=== PATIENT | female | born 1975 | race Caucasian/White ===

== ENCOUNTER 2016-08-31 10:40 | Emergency (ER) | payer SELFPAY ==
[2016-08-31 10:48] VITALS: TEMP 97.8; BMI 25.6
--- NOTE | 2016-08-31 11:30 | PDOC ---
History of Present Illness - History of Present Illness Initial Comments: 08/31/16 11:31 The patient is a 40-year-old woman, [id number] (2 were surgical ; last was oral pill intake in 2013), with no past medical history of who presents to the emergency department via walk-in for further evaluation of vaginal bleeding for the past 3 weeks. Patient states that she has been experiencing intermittent episodes of vaginal bleeding, daily, that are at times heavy (soaking 2 pads) and also at times light. She reports experiencing abdominal pain, approximately 3 days ago. She describes her pain as a cramping sensation that is focal and non -radiating over the right lower quadrant. She went to [facility], approximately 2 days ago for which she underwent an ultrasound and she was found to have a right sided pelvic mass. Patient states that her abdominal pain has worsen, to a rated 8/10 in severity with associated symptoms of chills. She also expresses concern, as she is still bleeding. Her last menstrual period was June 29 2016. She denies history of ovarian cysts/ ectopic pregnancies. She admits to a history of Gonorrhea which was treated orally when she was approximately 22 years of age. Allergies: No Known Drug Allergies. Past Surgical History: See HPI. Social History: No tobacco, ETOH and recreational drug use. <Violet Sebastian - Last Filed: 08/31/16 14:30> <Mayank Landers - Last Filed: 08/31/16 16:32> - General Chief Complaint: Vaginal Bleeding Stated Complaint: VAG BLEEDIING Time Seen by Provider: 08/31/16 11:11 Past History <Violet Sebastian - Last Filed: 08/31/16 14:30> - Past Medical History Other medical history: DENIES. - Psycho/Social/Smoking Cessation Hx Suicidal Ideation: No Smoking History: Never smoked <Mayank Landers - Last Filed: 08/31/16 16:32> - Past Medical History Allergies/Adverse Reactions: Allergies Allergy/AdvReac Type Severity Reaction Status Date / Time No Known Allergies Allergy Verified 08/31/16 10:44 Home Medications: Ambulatory Orders NK [No Known Home Medication] 08/31/16 Review of Systems - Review of Systems Constitutional: No: Chills, Fever Respiratory: No: Cough, Shortness of Breath Cardiac (ROS): No: Chest Pain : Yes: See HPI. No: Dysuria All Other Systems: Reviewed and Negative <Mayank Landers - Last Filed: 08/31/16 16:32> *Physical Exam - Vital Signs Last Vital Signs Temp Pulse Resp BP Pulse Ox 97.8 F 76 19 114/62 99 08/31/16 10:45 08/31/16 10:45 08/31/16 10:45 08/31/16 10:45 08/31/16 10:45 - Physical Exam Comments: 08/31/16 11:36 GENERAL: The patient is awake, alert, and fully oriented, in no acute distress. HEAD: Normal with no signs of trauma. EYES: Pupils equal, round and reactive to light, extraocular movements intact, sclera anicteric, conjunctiva clear with no pallor. ENT: Ears normal, nares patent, oropharynx clear without exudates. Moist mucous membranes. NECK: Normal range of motion, supple without lymphadenopathy, JVD, or masses. LUNGS: Breath sounds equal, clear to auscultation bilaterally. No wheeze/ crackles. HEART: Regular rate and rhythm, normal S1 and S2 without murmur or rub. ABDOMEN: Soft. +Referred pain to the right lower quadrant when palpating the left. There is some diffuse tenderness with guarding greater in the pelvis that the right lower quarant below McBurney's point. Nondistended. BS wnl. No palpable masses. No hepatosplenomegaly. EXTREMITIES: Normal range of motion, no edema. No clubbing or cyanosis. No cords, erythema, or tenderness. NEUROLOGICAL: Cranial nerves II through XII grossly intact. Normal speech, normal gait. PSYCH: Normal mood, normal affect. SKIN: Warm, Dry, normal turgor, no rashes or lesions noted. <Violet Sebastian - Last Filed: 08/31/16 14:30> - Vital Signs Last Vital Signs Temp Pulse Resp BP Pulse Ox 97.8 F 76 19 114/62 99 08/31/16 10:45 08/31/16 10:45 08/31/16 10:45 08/31/16 10:45 08/31/16 10:45 <Mayank Landers - Last Filed: 08/31/16 16:32> ED Treatment Course - LABORATORY CBC & Chemistry Diagram: 08/31/16 11:50 08/31/16 11:33 - RADIOLOGY Radiograph Interpretation: 08/31/16 14:30 EXAM: US/TRANSVAGINAL ULTRASOUND IMPRESSION: The uterus is normal in size measuring 8.1 x 6.1 x 5.6 cm. There is a uterine mass identified within the fundus consistent with a leiomyoma. This fibroid measures 2.6 x 2.4 x 2.2 cm. A normal appearing endometrium of 3 mm thickness was identified. The right ovary is normal in size and texture. The left ovary could not be identified. The are distended vascular structures within both adnexal regions suspicious for varicoceles. There is no evidence of adnexal masses. There is a small amount of free fluid within the cul-de- sac. <Violet Sebastian - Last Filed: 08/31/16 14:30> - LABORATORY CBC & Chemistry Diagram: 08/31/16 11:50 08/31/16 11:33 - RADIOLOGY Radiology Studies Ordered: Category Date Time Status TRANSVAGINAL ULTRASOUND US [US] Stat Ultrasound 08/31/16 11:29 Ordered <Mayank Landers - Last Filed: 08/31/16 16:32> Medical Decision Making - Medical Decision Making 08/31/16 12:14 A portion of this note was documented by scribe services under my direction. I have reviewed the details of the note, within reason, and agree with the documentation with the following case summary and management plan written by me. 40-year-old female , LMP first week of June presents with persistent vaginal bleeding for 3 weeks. Passing large clots and tissue last week, was evaluated at [facility] 2 days ago and had ultrasound that reportedly showed a pelvic mass, but she has no other knowledge of her results. Presents now for persistent pain in the right pelvis and spotting. To her knowledge, has never had an ectopic , had STI at age 22 that was treated, has had 2 procedural abortions. Vital signs normal. Generally well-appearing. Abdomen is soft and nondistended, but there are peritoneal findings in the right pelvis with referred pain to the right 40-year-old female with possible recent miscarriage presents with persistent spotting and right pelvic pain. Still concerning for ectopic, ? persistent cyst , ? infectious/abscess? Seems less likely GI related. labs, ua pain meds, IVF EVUS reassess 08/31/16 14:33 Labs are within normal limits, no leukocytosis, urinalysis is clear. HCG 1383. Ultrasound shows small fibroid, pelvic varicoceles, but no ovarian mass, IUP, or ectopic . HCG is likely downtrending given history of miscarriage. Given the persistent peritoneal findings, will check CT of the abdomen and pelvis to rule out any intra-abdominal pathology <Mayank Landers - Last Filed: 08/31/16 16:32> *DC/Admit/Observation/Transfer - Attestations Scribe Attestion: 08/31/16 11:39 Documentation prepared by Violet Sebastian, acting as medical services assistant for Mayank Landers MD. <Violet Sebastian - Last Filed: 08/31/16 14:30> <Mayank Landers - Last Filed: 08/31/16 16:32> Diagnosis at time of Disposition: Pelvic pain in female - Discharge Dispostion Condition at time of disposition: Fair
[2016-08-31] MEDS ORDERED: SODIUM CHLORIDE 1,000 ML IV ONE (11:42)
[2016-08-31] MEDS ORDERED: morphine CARPU-JECT 4 MG/1 ML DISP.SYRIN IVPUSH ONE (11:42)
[2016-08-31] MEDS ORDERED: ACETAMINOPHEN 500 MG TABLET (FP) PO ONE (11:52)
[2016-08-31] MEDS ORDERED: ACETAMINOPHEN 325 MG TABLET (FP) ONE (11:53)
[2016-08-31 11:58] LABS: BASOPHIL 0.5 % (0-2.0); EOSINOPHIL 1.2 % (0-4.5); MCH 30.7 pg (25.7-33.7); MCHC 34.3 g/dl (32.0-36.0); MEAN CELL VOLUME 89.6 fl (80-96); MEAN PLT VOLUME 7.6 fl (7.5-11.1); PLATELET COUNT 195 K/MM3 (134-434); RDW 13.9 % (11.6-15.6); WHITE BLOOD COUNT 7.3 K/mm3 (4.0-10.0)
[2016-08-31 11:59] LABS: URINE APPEARANCE CLEAR; URINE BILIRUBIN NEGATIVE (NEGATIVE); URINE COLOR STRAW; URINE GLUCOSE (UA) NEGATIVE (NEGATIVE); URINE KETONE NEGATIVE (NEGATIVE); URINE LEUK ESTERASE NEGATIVE (NEGATIVE); URINE NITRITE NEGATIVE (NEGATIVE); URINE PROTEIN NEGATIVE (NEGATIVE); URINE UROBILINOGEN NEGATIVE E.U./dl (0.2-1.0)
[2016-08-31 12:05] LABS: URINE BLOOD 2+ (NEGATIVE)
[2016-08-31 12:15] LABS: URINE MUCUS RARE; URINE RBC 1 /hpf (0-3); URINE WBC <1 /hpf (3-5)
[2016-08-31 12:16] LABS: INR 1.1 (0.82-1.09); PROTHROMBIN TIME (PATIENT) 12.1 SEC (9.98-11.88)
[2016-08-31 12:27] LABS: ANION GAP 10 (8-16); BILIRUBIN,TOTAL 0.7 mg/dL (0.2-1.0); CALCIUM 8.9 mg/dL (8.5-10.1); CO2 24 mmol/L (21-32); CREATININE 0.5 mg/dL (0.55-1.02); GLUCOSE,RANDOM 93 mg/dL (74-106); SGOT/AST 16 U/L (15-37); SGPT/ALT 26 U/L (12-78); TOT PROT 7.4 g/dl (6.4-8.2)
[2016-08-31 12:42] LABS: ALK PHOS 97 U/L (45-117)
[2016-08-31 15:21] VITALS: BP 121/69; PULSE 80
[2016-08-31] MEDS ORDERED: ACETAMINOPHEN WITH CODEINE 300MG/30MG TABLET PO ONE (15:46)
[2016-08-31] MEDS ORDERED: ACETAMINOPHEN WITH CODEINE 300MG/30MG TABLET ONE (15:55)
--- NOTE | 2016-08-31 18:53 | PDOC ---
*Physical Exam - Vital Signs Last Vital Signs Temp Pulse Resp BP Pulse Ox 97.8 F 80 19 121/69 99 08/31/16 10:45 08/31/16 14:40 08/31/16 14:40 08/31/16 14:40 08/31/16 14:40 ED Treatment Course - LABORATORY CBC & Chemistry Diagram: 08/31/16 11:50 08/31/16 11:33 - ADDITIONAL ORDERS Additional order review: Laboratory Results 08/31/16 08/31/16 08/31/16 11:50 11:50 11:33 INR 1.10 Sodium 139 Potassium 4.1 Chloride 105 Carbon Dioxide 24 Anion Gap 10 BUN 9 Creatinine 0.5 L Creat Clearance w eGFR > 60 Random Glucose 93 Calcium 8.9 Total Bilirubin 0.7 AST 16 ALT 26 Alkaline Phosphatase 97 Total Protein 7.4 Albumin 4.0 Beta HCG, Quant 1383.0 Urine Color Urine Appearance Urine pH Ur Specific [place] Urine Protein Urine Glucose (UA) Urine Ketones Urine Blood Urine Nitrite Urine Bilirubin Urine Urobilinogen Ur Leukocyte Esterase Urine RBC Urine WBC Ur Epithelial Cells Urine Mucus Urine HCG, Qual Blood Type O POSITIVE Antibody Screen Negative 08/31/16 11:20 INR Sodium Potassium Chloride Carbon Dioxide Anion Gap BUN Creatinine Creat Clearance w eGFR Random Glucose Calcium Total Bilirubin AST ALT Alkaline Phosphatase Total Protein Albumin Beta HCG, Quant Urine Color Straw Urine Appearance Clear Urine pH 6.0 Ur Specific [place] 1.010 Urine Protein Negative Urine Glucose (UA) Negative Urine Ketones Negative Urine Blood 2+ H Urine Nitrite Negative Urine Bilirubin Negative Urine Urobilinogen Negative Ur Leukocyte Esterase Negative Urine RBC 1 Urine WBC <1 Ur Epithelial Cells Rare Urine Mucus Rare Urine HCG, Qual Positive Blood Type Antibody Screen 08/31/16 11:50 RBC 4.37 MCV 89.6 MCHC 34.3 RDW 13.9 MPV 7.6 Neutrophils % 66.0 Lymphocytes % 27.0 Monocytes % 5.3 Eosinophils % 1.2 Basophils % 0.5 - Medications Given in the ED: ED Medications Discontinued Medications Generic Name Dose Route Start Last Admin Trade Name Freq PRN Reason Stop Dose Admin Acetaminophen 975 mg 08/31/16 11:52 08/31/16 11:53 Tylenol - PO 08/31/16 11:53 975 mg ONCE ONE Administration Acetaminophen/Codeine Phosphate 1 tab 08/31/16 15:46 08/31/16 15:56 Tylenol # 3 - PO 08/31/16 15:47 1 tab ONCE ONE Administration Sodium Chloride 1,000 mls @ 1,000 mls/hr 08/31/16 11:42 08/31/16 11:46 Normal Saline - IV 08/31/16 12:41 1,000 mls/hr ONCE ONE Administration Morphine Sulfate 4 mg 08/31/16 11:42 08/31/16 11:45 Morphine Injection - IVPUSH 08/31/16 11:43 Not Given ONCE ONE Medical Decision Making - Medical Decision Making 08/31/16 18:51 Sign-out received from outgoing Emergency Physician Dr. Landers Pt interviewed and examined Ancillary studies reviewed Case discussed in detail with oncoming Emergency Physician including history, physical exam and ancillary studies. CT abdomen and pelvis reviewed. Appendix appears unremarkable. 3 x 2 cm right ovarian cyst is seen containing internal debris, No free intraperitoneal fluid is noted. The common bile duct is slighty prominent with a 7 mm diameter. Transvaginal ultrasound. No evidence of adnexal masses. Fibroid uterus. Suspected bilateral pelvic varicocels. Trace free pelvic fluid. CBC, BMP 08/31/16 11:50 08/31/16 11:33 CMP Sodium 139 mmol/L (136-145) 08/31/16 11:33 Potassium 4.1 mmol/L (3.5-5.1) 08/31/16 11:33 Chloride 105 mmol/L (98-107) 08/31/16 11:33 Carbon Dioxide 24 mmol/L (21-32) 08/31/16 11:33 Anion Gap 10 (8-16) 08/31/16 11:33 BUN 9 mg/dL (7-18) 08/31/16 11:33 Creatinine 0.5 mg/dL (0.55-1.02) L 08/31/16 11:33 Creat Clearance w eGFR > 60 (>60) 08/31/16 11:33 Random Glucose 93 mg/dL (74-106) 08/31/16 11:33 Calcium 8.9 mg/dL (8.5-10.1) 08/31/16 11:33 Total Bilirubin 0.7 mg/dL (0.2-1.0) 08/31/16 11:33 AST 16 U/L (15-37) 08/31/16 11:33 ALT 26 U/L (12-78) 08/31/16 11:33 Alkaline Phosphatase 97 U/L (45-117) 08/31/16 11:33 Total Protein 7.4 g/dl (6.4-8.2) 08/31/16 11:33 Albumin 4.0 g/dl (3.4-5.0) 08/31/16 11:33 Beta HCG, Quant 1383.0 mIU/ml 08/31/16 11:33 Urine Test Results Urine Color Straw 08/31/16 11:20 Urine Appearance Clear 08/31/16 11:20 Urine pH 6.0 (5.0-8.0) 08/31/16 11:20 Ur Specific [place] 1.010 (1.001-1.035) 08/31/16 11:20 Urine Protein Negative (NEGATIVE) 08/31/16 11:20 Urine Glucose (UA) Negative (NEGATIVE) 08/31/16 11:20 Urine Ketones Negative (NEGATIVE) 08/31/16 11:20 Urine Blood 2+ (NEGATIVE) H 08/31/16 11:20 Urine Nitrite Negative (NEGATIVE) 08/31/16 11:20 Urine Bilirubin Negative (NEGATIVE) 08/31/16 11:20 Ur Leukocyte Esterase Negative (NEGATIVE) 08/31/16 11:20 Urine RBC 1 /hpf (0-3) 08/31/16 11:20 Urine WBC <1 /hpf (3-5) 08/31/16 11:20 Ur Epithelial Cells Rare /hpf (FEW) 08/31/16 11:20 Urine Mucus Rare 08/31/16 11:20 08/31/16 19:41 Prior to the CAT scan, I had also spoken to the patient as well. She had explained to me that for the last 3 weeks that the patient has had vaginal bleeding with passage of blood clots similar to her previous miscarriages. Patient states that she never went to an band bias machine operator or show card writer to confirm her . She had visited [facility] several days ago and had a pelvic ultrasound that demonstrated questionable right pelvic mass. However, the patient was complaining of persistent right pelvic pain and came into the ED here. The patient was noted to have a beta hCG of 1383. An ultrasound was obtained which demonstrated no findings other than fibroids. During this time, I was signed out awaiting CAT scan. I suspect this may potentially be miscarriages well, however, we cannot fully rule out ectopic . I explained that there is some risk of radiation to the fetus if she decides according to CAT scan. However, patient reports that she is going to terminate the regardless. And that she is aware of the findings and requests the CT scan to r/o abdominal pathology ie appendicitis. Results have returned and demonstrated a right ovarian cyst with internal debris. I discussed the case with Dr. Mata. He also suggest that this is likely miscarriage with right hemorrhagic ovarian cyst causing the pain. However, to be truly short, the patient will need to return to the ER 48 hours for repeat beta hCG. Patient has been even these instructions and verbalized that this has not been effectively ruled out as ectopic. Patient was understandably agree to return in 48 hours. Return precautions given. I discussed the physical exam findings, ancillary test results and final diagnoses with the patient. I answered all of the patient's questions. The patient was satisfied with the care received and felt comfortable with the discharge plan and treatment plan. The patient will call their primary care physician within 24 hours to arrange follow-up and will return to the Emergency Department with any new, persistant or worsening symptoms. *DC/Admit/Observation/Transfer Diagnosis at time of Disposition: Pelvic pain in female - Discharge Dispostion Disposition: HOME Condition at time of disposition: Stable Admit: No - Patient Instructions Printed Discharge Instructions: DI for Ovarian Cyst, DI for Vaginal Bleeding During Additional Instructions: At this time, despite having a positive , after discussion, he has decided and agreed for CAT scan the abdomen pelvis. The workup demonstrated likely ovarian cyst and possible miscarriage. However, to be sure and to rule out ectopic , you will need to return in 48 hours to the emergency department for repeat blood work including beta hCG. If there is uncontrollable pain or uncontrollable bleeding, return to the ER sooner.
== END 2016-08-31 20:31 | disposition home or self-care (01) ==
LOC: JER 10:40
PROC: 3E0337Z Introduction of Electrolytic and Water Balance Substance into Peripheral Vein, Percutaneous Approach (ICD-10-PCS; principal; 2016-08-31)
DX: R10.2 Pelvic and perineal pain (principal)
CPT/HCPCS: 36415; 74177-TC; 76830-TC; 80053; 81003; 81015; 84702; 84703; 85025; 85610; 86850; 86900; 86901; 99284-25; Q9967

== ENCOUNTER 2016-09-02 13:42 | Emergency (ER) | payer SELFPAY ==
[2016-09-02 13:47] VITALS: BP 116/83; PULSE 67; TEMP 98.3; BMI 25.6
--- NOTE | 2016-09-02 15:47 | PDOC ---
History of Present Illness - General Chief Complaint: [facility] Stated Complaint: F/U Time Seen by Provider: 09/02/16 15:11 History Source: Patient Exam Limitations: No Limitations - History of Present Illness Initial Comments: My Chief Complaint: vaginal bleeding, here for repeat labs, rt. lower abdominal discomfort History of Present Illness: 40-year-old female ,A 2 here today for repeat Beta HCG. Pt.'s LMP first week of June. Pt. was seen here on 08/31/16 due to persistent vaginal bleeding since 08/11/16. Pt. was noted to have a beta HCG of 1383, had a transvaginal pt. was noted to have fibroid, suspected b/l pelvi vaicoceles, trace free pelvic fluid. Pt. also had a CT of Abd/Pelvis with IV and oral contrast noted to have 3 X 2 cm rt. ovarian cyst is seen containing internal debir, common bile duct is slightly prominent with 7 mm diameter, b/l parauterine varicosities. Pt. continues to have daily daily vaginal bleeding with no clots mild to moderate changes her pad every 1 1/2 hrs she has persistent pain in the right pelvis with movement only. She denies any knowledge of ever having an ectopic , had STI at age 22 that was treated. Pt. denies any fever. 09/02/16 16:03 09/02/16 16:23 Timing/Duration: intermittent Severity: mild Associated Symptoms: reports: other (right lower quadrant tenderness, vaginal bleeding since 08/11/16) Past History - Past Medical History Allergies/Adverse Reactions: Allergies Allergy/AdvReac Type Severity Reaction Status Date / Time No Known Allergies Allergy Verified 09/02/16 13:45 Home Medications: Ambulatory Orders NK [No Known Home Medication] 08/31/16 - Psycho/Social/Smoking Cessation Hx Anxiety: No Suicidal Ideation: No Smoking History: Never smoked Have you smoked in the past 12 months: No Information on smoking cessation initiated: No Hx Alcohol Use: No Drug/Substance Use Hx: No Substance Use Type: None Review of Systems - Review of Systems Able to Perform ROS?: Yes Constitutional: No: Symptoms Reported HEENTM: No: Symptoms Reported Respiratory: No: Symptoms reported Cardiac (ROS): No: Symptoms Reported ABD/GI: Yes: Other (right lower quadrant tenderness with movement intermittently ) : Yes: Other (vaginal bleeding mild to moderate daily since 08/11/16 one pad per 1 1/2 hrs witn no clots noted, was here 08/31/16). No: Burning, Dysuria Integumentary: No: Symptoms Reported Neurological: No: Symptoms reported *Physical Exam - Vital Signs Last Vital Signs Temp Pulse Resp BP Pulse Ox 98.3 F 67 18 116/83 100 09/02/16 13:45 09/02/16 13:45 09/02/16 13:45 09/02/16 13:45 09/02/16 13:45 - Physical Exam General Appearance: Yes: Appropriately Dressed Respiratory/Chest: positive: Lungs Clear, Normal Breath Sounds. negative: Chest Tender, Respiratory Distress Cardiovascular: positive: Regular Rhythm, Regular Rate, S1, S2 Gastrointestinal/Abdominal: positive: Normal Bowel Sounds, Tender (mild rt. lower quadrant pain ), Soft. negative: Distended, Guarding, Rebound, Hepatomegaly, Spleenomegaly Integumentary: positive: Normal Color Neurologic: positive: Alert, Normal Response, Responsive Medical Decision Making - Medical Decision Making 09/02/16 16:26 40-year-old female ,A 2 here today for repeat Beta HCG. Pt.'s LMP first week of June. Pt. was seen here on 08/31/16 due to persistent vaginal bleeding since 08/11/16. Pt. was noted to have a beta HCG of 1383, had a transvaginal pt. was noted to have fibroid, suspected b/l pelvi vaicoceles, trace free pelvic fluid. Pt. also had a CT of Abd/Pelvis with IV and oral contrast noted to have 3 X 2 cm rt. ovarian cyst is seen containing internal debir, common bile duct is slightly prominent with 7 mm diameter, b/l parauterine varicosities. Pt. continues to have daily daily vaginal bleeding with no clots mild to moderate changes her pad every 1 1/2 hrs she has persistent pain in the right pelvis with movement only. She denies any knowledge of ever having an ectopic , had STI at age 22 that was treated. Pt. denies any fever. previous BHCG 1383.0 on 08/31/16. vaginal bleeding PLAN: beta hcg acetaminophen [address] Frost [phone] called, left message since he was the MD that Dr. Hung consulted with on 08/31/16, Dr. Hung suggested that ui give him a call Dr. Fallon called at [phone] explained case to her she will come down to examine pt. 09/02/16 16:40 Laboratory Tests 09/02/16 15:44 Beta HCG, Quant 916.9 09/02/16 17:53 Dr. Fallon here for consultation, did internal Underwriting Support Manager exam she recommends transvaginal US, call here with results she will be upstairs no intrauterine gestation or gestational sac 5questionable early , ectopic , recent miscarriage, correlate with beta hCG levels, follow- up sonogram. The right ovary demonstrates no definite sonographic abnormality. A 32 cm right ovarian cyst containing internal debris identified on recently perform CT cannot be appreciated on the study. A very small amount of free fluid in the cul-de-sac per Dr. Merlos She was seen again by Dr. Gee she recommended the patient come back in 2 days for repeat beta hCG and that consulted and will come down to reevaluate patient pt. currently does not have a EQUIPMENT MAINTENANCE TECHNICIAN/OB in the community 09/03/16 11:41 *DC/Admit/Observation/Transfer Diagnosis at time of Disposition: Abdominal discomfort in right lower quadrant, Vaginal bleeding in patient at less than 20 weeks gestation Diagnosis at time of Disposition: (Ruled Out): Vaginal bleeding, abnormal - Discharge Dispostion Disposition: HOME Condition at time of disposition: Stable - Patient Instructions Additional Instructions: return here in 2 days for repeat beta hcg or sooner if pain worsens and follow up with Dr. Fallon take acetaminophen as needed as directed by nephrology nurse Patient voiced understanding of discharge instructions and all questions were answered
[2016-09-02] MEDS ORDERED: ACETAMINOPHEN 500 MG TABLET (FP) PO ONE (16:23)
[2016-09-02] MEDS ORDERED: ACETAMINOPHEN 500 MG TABLET (FP) ONE (16:25)
== END 2016-09-02 21:29 | disposition home or self-care (01) ==
LOC: JERFT 13:42 → JER 13:42 → JERFT 21:29
DX: O26.899 Other specified pregnancy related conditions, unspecified trimester (principal); R10.31 Right lower quadrant pain
CPT/HCPCS: 36415; 76817-TC; 84702; 99281-25